=== PATIENT | male | born 1935 | race Caucasian/White ===

== ENCOUNTER 2017-01-06 19:17 | Observation (INO) | payer MEDICARE ==
[~2017-01-06] VITALS: Ht 172.7 cm; Wt 78.5 kg
[~2017-01-06 19:17] MED LIST: ZYRTEC10 M3 PO
[2017-01-06 20:07] LABS: HEMOGLOBIN 12.3 gm/dl (14.0-17.5); RED BLOOD COUNT 4.05 M/UL (4.20-5.50); WHITE BLOOD COUNT 8.3 K/UL (4.5-11.0)
[2017-01-06 20:29] LABS: BUN/CREATININE RATIO 22 (0-10)
[2017-01-07] MEDS ORDERED: PLAVIX 75 MG TA75 MG PO (02:53)
[2017-01-07] MEDS ORDERED: ATORVASTATIN CA40 MG PO (02:53)
[2017-01-07] MEDS ORDERED: GLUCOPHAGE 500500 MG PO (02:54)
[2017-01-07] MEDS ORDERED: JANUVIA50 MG PO (02:55)
[2017-01-07] MEDS ORDERED: GLUCOTROL XL10 MG PO (02:55)
[2017-01-07] MEDS ORDERED: TOPROL XL 25 MG25 MG PO (02:56)
[2017-01-07] MEDS ORDERED: SYNTHROID50 MCG PO (02:56)
[2017-01-07] MEDS ORDERED: LISINOPRIL-HCT1 EAC1 PO (02:57)
[2017-01-07] MEDS ORDERED: SINGULAIR10 MG PO (02:57)
[2017-01-07] MEDS ORDERED: VITAMIN D5000 UNIT PO (02:58)
[2017-01-07] MEDS ORDERED: ZANTAC 150 MG150 MG PO (02:59)
[2017-01-07] MEDS ORDERED: ASPIRIN EC81 MG PO (02:59)
[2017-01-07] MEDS ORDERED: IBUPROFEN400 MG PO (03:00)
[2017-01-07] MEDS ORDERED: NITROSTAT0.4 MG SL (03:01)
[2017-01-07] MEDS ORDERED: VITAMIN B12-FO1 EACH PO (03:03)
[2017-01-07] MEDS ORDERED: TRAMADOL HCL50 MG PO (03:03)
[2017-01-07 04:26] LABS: HEMOGLOBIN 11.8 gm/dl (14.0-17.5); RED BLOOD COUNT 3.9 M/UL (4.20-5.50); WHITE BLOOD COUNT 8.4 K/UL (4.5-11.0)
[2017-01-07 04:55] LABS: BUN/CREATININE RATIO 25 (0-10)
[2017-01-07] MEDS ORDERED: ELIQUIS5 MG PO (19:44)
[2017-01-07] MEDS ORDERED: KEPPRA250 MG PO (19:45)
[2017-01-07] MEDS ORDERED: LOPRESSOR 25 MG25 MG PO (19:45)
[2017-03-04] MEDS ORDERED: FOLIC ACID1 MG PO (10:37)
[2017-03-05] MEDS ORDERED: LEVAQUIN500 MG PO (12:10)
[2017-03-05] MEDS ORDERED: TYLENOL W/CODEIN1 E1 PO (12:13)
[2017-03-05] MEDS ORDERED: AMIODARONE HCL400 MG PO (12:21)
[2017-03-05] MEDS ORDERED: LOPRESSOR 50 MG50 MG PO (12:23)
== END 2017-01-07 20:00 | disposition home or self-care (01) ==
LOC: ER1 19:17 → M/S 23:09 → ZEROF 23:09 → M/S 01-07 02:12
PROVIDERS: Emergency Medicine; ADMIT Internal Medicine
DX: R55 Syncope and collapse (principal); I48.91 Unspecified atrial fibrillation; I25.10 Atherosclerotic heart disease of native coronary artery without angina pectoris; E11.9 Type 2 diabetes mellitus without complications; I10 Essential (primary) hypertension; I73.9 Peripheral vascular disease, unspecified; E03.9 Hypothyroidism, unspecified; M19.90 Unspecified osteoarthritis, unspecified site; Z86.69 Personal history of other diseases of the nervous system and sense organs; Z79.1 Long term (current) use of non-steroidal anti-inflammatories (NSAID); Z79.02 Long term (current) use of antithrombotics/antiplatelets; Z79.82 Long term (current) use of aspirin; Z79.899 Other long term (current) drug therapy; Z95.1 Presence of aortocoronary bypass graft; Z95.5 Presence of coronary angioplasty implant and graft
CPT/HCPCS: ECHO; 36415; 70450; 71010; 80048; 80053; 81001; 82550; 82553; 82962; 83605; 83735; 83874; 83880; 84100; 84439; 84443; 84484; 85025; 85610; 85730; 87086; 93005; 93306; 93880; 99285; G0378